=== PATIENT | male | born 1995 | race Caucasian/White ===

== ENCOUNTER 2017-01-03 21:09 | Emergency (ER) | payer BC ==
[~2017-01-03] VITALS: Ht 190.5 cm; Wt 107.0 kg
[2017-01-03 21:10] VITALS: BP 123/98; PULSE 98; TEMP 37; O2SAT 98; Ht 190.5 cm; Wt 107.0 kg
--- NOTE | 2017-01-03 21:40 | DIAGNOSTIC IMAGING REPORT ---
RIGHT ANKLE 3 VIEWS CLINICAL HISTORY: Right ankle injury. FINDINGS: 3 views of the right ankle are obtained. No prior studies are available for comparison at the time of dictation. The skeletal structures are well mineralized. No fracture is seen. The ankle mortise is intact. There is a joint effusion. Soft tissue edema is present around the ankle, greatest laterally. IMPRESSION: Soft tissue swelling and joint effusion. No right ankle fracture is identified. Electronically signed by: Chong Sorensen M.D. 01/03/2017 9:39 PM Dictated Date/Time: 01/03/2017 9:38 PM
--- NOTE | 2017-01-03 21:53 | EMERGENCY ROOM VISIT NOTE ---
ED Visit Note First contact with patient: 21:13 CHIEF COMPLAINT: Right ankle injury 30 minutes ago HISTORY OF PRESENT ILLNESS: Patient is an otherwise healthy 21-year-old white male who presents emergency department by BLS ambulance for evaluation of a right ankle injury. He was playing intramural floor hockey, and he quickly changed positions to go after the ball, sustaining an inversion injury to the right ankle. He heard and felt a popping sensation in the right ankle. He was able to get up and ambulate to the administrative desk, where EMS was summoned. He notes minimal pain, does note swelling and a sense of tightness in the ankle. There is no numbness or tingling. He can move the ankle normally. Ice was applied. He has not had any medications. No prior history of injuries to this ankle. No knee pain. REVIEW OF SYSTEMS: Review of systems as per HPI. All other systems reviewed were negative. At least 6 systems reviewed. PMH: Electronic medical records are reviewed and summarized as above/below. See Problem List. SOCIAL HISTORY: Patient is a college student who lives locally. He does not smoke. PHYSICAL EXAM: Vital Signs: Reviewed Nurse's notes. MENTAL STATUS: Alert, oriented, and cooperative. The right ankle is markedly swollen and tender over the lateral aspect but the skin is intact and there is no ligamentous instability. No pain over the 5th metatarsal or fibular head. Lisfranc joint is negative. There is no deformity. The foot and toes are warm and well- perfused. Sensation to pain and light touch is intact. EMERGENCY DEPARTMENT COURSE: X-ray reveals no fracture, only the soft tissue swelling. A compression sleeve and gel splint were applied to the ankle under my direction and the position was satisfactory. Crutches were issued and patient was instructed on a non weight bearing gait. Differential diagnosis include foot verses ankle sprain/fracture, contusion, dislocation. Medication reconciliation: I attest that I have personally reviewed the patient' s current medication list. Blood pressure screening : Patient was found to have normal blood pressure on screening and does not require follow-up. RIGHT ANKLE 3 VIEWS CLINICAL HISTORY: Right ankle injury. FINDINGS: 3 views of the right ankle are obtained. No prior studies are available for comparison at the time of dictation. The skeletal structures are well mineralized. No fracture is seen. The ankle mortise is intact. There is a joint effusion. Soft tissue edema is present around the ankle, greatest laterally. IMPRESSION: Soft tissue swelling and joint effusion. No right ankle fracture is identified. Current/Historical Medications No Active Prescriptions or Reported Meds Allergies Coded Allergies: No Known Allergies (Unverified , 01/03/17) Vital Signs Date Time Temp Pulse Resp B/P (MAP) Pulse Ox O2 Delivery O2 Flow Rate FiO2 01/03/17 21:10 37.0 98 16 123/98 98 Room Air Departure Information Impression Primary Impression: Right ankle sprain Prescriptions No Active Prescriptions or Reported Meds Patient Instructions My [facility] Additional Instructions Ibuprofen(Motrin, Advil) may be used for fever or pain. Use 600mg every six hours as needed. Take with food. Avoid using more than 2400mg in a 24 hour period. Do not use 2400mg per day for more than three consecutive days without physician direction. Prolonged inappropriate use can lead to stomach upset or ulcers. This medication can be taken if you need to drive, work, or perform activities which may be dangerous when taking narcotic pain medication. (AND/OR) Acetaminophen(Tylenol) may be used for fever or pain. Use 1000mg every six hours as needed. Avoid using more than 3000mg in a 24 hour period. This medication can be taken if you need to drive, work, or perform activities which may be dangerous when taking narcotic pain medication. Ice compresses for 20 minutes at a time four times daily for 2-3 days. Use the gel splint and crutches as instructed. Rest and elevate your injury. Continue current medications. Return to the ER immediately for any numbness, tingling, severe pain, extreme swelling in the extremity or as needed. Followup with your family doctor or orthopedic surgery if no improvement in 5-7 days.
== END 2017-01-03 22:21 | disposition home or self-care (01) ==
LOC: C.EDC 21:11
DX: S93.401A Sprain of unspecified ligament of right ankle, initial encounter (principal); X50.9XXA Other and unspecified overexertion or strenuous movements or postures, initial encounter; Y93.65 Activity, lacrosse and field hockey